=== PATIENT | male | born 1955 | race Caucasian/White ===

== ENCOUNTER 2019-06-10 07:47 | Emergency (ER) | payer OTHER ==
[~2019-06-10] VITALS: Ht 190.5 cm; Wt 98.0 kg
[2019-06-10] MEDS ORDERED: LISI10TA4 PO (07:53)
[2019-06-10] MEDS ORDERED: IBUP200T45 PO (07:53)
[2019-06-10 08:25] LABS: APPEARANCE, URINE CLEAR (CLEAR); BACTERIA, URINE AUTO NEGATIVE (NEGATIVE); BILIRUBIN, URINE AUTO NEGATIVE (NEGATIVE); BLOOD, URINE BLOOD NEGATIVE (NEGATIVE); COLOR, URINE YELLOW (YELLOW); GLUCOSE, URINE (UA) AUTO NEGATIVE (NEGATIVE); KETONE, URINE AUTO NEGATIVE (NEGATIVE); LEUKOCYTE ESTERASE, URINE AUTO NEGATIVE (NEGATIVE); NITRITE, URINE AUTO NEGATIVE (NEGATIVE); PROTEIN, URINE AUTO NEGATIVE (NEGATIVE); RBC, URINE AUTO 0 /HPF (0-3); SPECIFIC GRAVITY URINE AUTO 1.009 (1.002-1.035); SQUAMOUS EPITHELIAL CELL UR AU 0 /HPF (0-6); UROBILINOGEN, URINE AUTO 0.2 mg/dL (0.0-2.0); WBC, URINE AUTO 0 /HPF (0-3)
[2019-06-10] MEDS ORDERED: KETOROLAC TROMETHAMINE 10 MG TAB PO ONE (09:30)
[2019-06-10] MEDS ORDERED: KETO10TAB PO (09:41)
[2019-06-10] MEDS ORDERED: CYCL5TAB PO (09:41)
[2019-06-10 09:45] VITALS: BP 155/81
== END 2019-06-10 09:47 | disposition home or self-care (01) ==
LOC: M ED 07:47
DX: M54.5 Low back pain (principal); I10 Essential (primary) hypertension; Z79.899 Other long term (current) drug therapy